=== PATIENT | female | born 1975 | race Caucasian/White ===

== ENCOUNTER 2017-06-02 09:23 | Emergency (ER) | payer OTHER ==
[~2017-06-02] VITALS: Ht 162.6 cm; Wt 100.3 kg
[2017-06-02 09:24] VITALS: TEMP 37; Ht 162.6 cm; Wt 100.3 kg
[2017-06-02] MEDS ORDERED: SODIUM CHLORIDE 0.9% 1000ML 1,000 ML IV STA (09:38)
[2017-06-02] MEDS ORDERED: FENTANYL CITRATE INJ 50 MCG/1 ML 2 ML VIAL IV STA (09:38)
[2017-06-02] MEDS ORDERED: CEFAZOLIN SOD 2000MG/15 ML IV PUSH IV STA (09:38)
--- NOTE | 2017-06-02 09:43 | EMERGENCY ROOM VISIT NOTE ---
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 fracture Additional Impressions: Open fracture of radius and ulna Closed fracture of right calcaneus Critical Care I have personally spent greater than 60 minutes of critical care time in the direct management of this patient. This includes bedside care, interpretation of diagnostic studies, and testing, discussion with consultants, patient, and family members, and other required patient management activities. This 60 minutes is in excess of all separately billable procedures. Scribe Attestation The scribe's documentation has been prepared under my direction and personally reviewed by me in its entirety. I confirm that the note above accurately reflects all work, treatment, procedures, and medical decision making performed by me. Departure Information Dispostion Transfer Acute Care Facility Prescriptions No Active Prescriptions or Reported Meds Patient Instructions My [facility] Problem Qualifiers
[2017-06-02] MEDS ORDERED: OPTIRAY 320 IV PRN (09:45)
[2017-06-02 10:00] VITALS: O2SAT 97
[2017-06-02 10:01] LABS: BASO % 0.1 %; BASO ABS # 0.01 K/uL (0-0.2); EOS % 0.6 %; EOS ABS # 0.04 K/uL (0-0.5); HEMATOCRIT 41.3 % (37-47); HEMOGLOBIN 13.8 g/dL (12.0-16.0); IG# 0.05 K/uL (0.00-0.02); LYMPH % 11.1 %; MEAN CELL VOLUME 81.3 fL (80-100); MEAN CORPUSCULAR HEMOGLOBIN 27.2 pg (25-34); MEAN CORPUSCULAR HGB CONC 33.4 g/dl (32-36); MEAN PLATELET VOLUME 9.5 fL (7.4-10.4); MONO % 2.9 %; MONO ABS # 0.21 K/uL (0.11-0.59); NEUT % 84.6 %; NEUT ABS # 6.08 K/uL (1.4-6.5); PLATELET COUNT 172 K/uL (130-400); RED CELL DISTRIBUTION WIDTH CV 13.7 % (11.5-14.5); RED CELL DISTRIBUTION WIDTH SD 40.9 fL (36.4-46.3); WHITE BLOOD COUNT 7.19 K/uL (4.8-10.8)
[2017-06-02 10:19] LABS: ALBUMIN 3.7 gm/dl (3.4-5.0); CALCIUM 8.5 mg/dl (8.5-10.1); CREATININE 0.86 mg/dl (0.60-1.20); POTASSIUM 3.8 mmol/L (3.5-5.1)
[2017-06-02 10:22] LABS: TOTAL PROTEIN 6.7 gm/dl (6.4-8.2)
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
[2017-06-02] MEDS ORDERED: MoRPHine SULFATE 4 MG/ML 1 ML CARP\\VIAL IV STA (11:07)
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
[2017-06-02] MEDS: FENTANYL CITRATE INJ 50 MCG/1 ML 2 ML VIAL IV PRN ×3 (12:37→14:00)
[2017-06-02 13:47] VITALS: BP 101/65; O2SAT 100
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
[2017-06-02 14:56] VITALS: PULSE 100
== END 2017-06-02 14:35 | disposition short-term general hospital (02) ==
LOC: EDBD 09:23 → C.EDA 09:24
DX: S22.42XA Multiple fractures of ribs, left side, initial encounter for closed fracture (principal); S92.001A Unspecified fracture of right calcaneus, initial encounter for closed fracture; S52.501C Unspecified fracture of the lower end of right radius, initial encounter for open fracture type IIIA, IIIB, or IIIC; V44.5XXA Car driver injured in collision with heavy transport vehicle or bus in traffic accident, initial encounter; Y92.410 Unspecified street and highway as the place of occurrence of the external cause; F17.210 Nicotine dependence, cigarettes, uncomplicated